=== PATIENT | female | born 1980 | race African-American/Black ===

== ENCOUNTER 2016-12-30 22:54 | Emergency (ER) | payer MEDICAID | END 2016-12-31 01:00 | disposition home or self-care (01) | LOC: D.ER 22:54 | DX: K08.89 Other specified disorders of teeth and supporting structures (principal) ==

== ENCOUNTER 2020-04-30 18:25 | Emergency (ER) | payer OTHER ==
[~2020-04-30] VITALS: Ht 162.6 cm; Wt 136.4 kg
[2020-04-30 18:33] VITALS: BP 144/104; Ht 162.6 cm; Wt 136.4 kg
[2020-04-30] MEDS ORDERED: LISINOPRIL20 MG PO (18:34)
== END 2020-04-30 20:20 | disposition left against medical advice (07) ==
LOC: D.ER 18:25
DX: R03.0 Elevated blood-pressure reading, without diagnosis of hypertension (principal)